=== PATIENT | male | born 1980 | race African-American/Black ===

== ENCOUNTER 2024-04-03 03:00 | Emergency (ER) | payer OTHER ==
[2024-04-03] MEDS: Ibuprofen 600 MG Tab PO ONE (03:06)
== END 2024-04-03 04:21 | disposition home or self-care (01) ==
LOC: MW.ED 03:00
DX: S82.241A Displaced spiral fracture of shaft of right tibia, initial encounter for closed fracture (principal); S82.831A Other fracture of upper and lower end of right fibula, initial encounter for closed fracture; Z75.8 Other problems related to medical facilities and other health care; Z88.0 Allergy status to penicillin; Z79.899 Other long term (current) drug therapy; V49.49XA Driver injured in collision with other motor vehicles in traffic accident, initial encounter; Y93.89 Activity, other specified
CPT/HCPCS: 29515; 73610; 99284; A9270; 99283